=== PATIENT | female | born 1985 | race Caucasian/White ===

== ENCOUNTER → 2016-12-14 | Outpatient (CLI) | payer BC ==
--- NOTE | 2016-12-14 18:45 | US ---
EXAMINATION TYPE: US OB <= 14 wk fetus DATE OF EXAM: 12/14/2016 6:04 PM COMPARISON: NONE CLINICAL HISTORY: Z36 Confirm Dates. EXAM PERFORMED: OBTA EXAM MEASUREMENTS: GESTATIONAL AGE / DATING Physician Established: (9 weeks/6 days) EDC: 07/13/2017 Dates by LMP: (9 weeks/6 days) EDC: 07/13/2017 Dates by First Scan: PROCESS TECHNICIAN Dates by Current Scan for: (10 weeks/0 days) EDC: 07/12/2017 MATERNAL ANATOMY Uterus: 11.5 x 8.9 x 8.0cm Right Ovary: 2.7 x 1.9 x 1.7cm Left Ovary: 2.0 x 1.9 x 1.9cm Post CDS / Adnexa: wnl Presence of free fluid: no Presence of corpus luteal cyst: not seen Presence of subchorionic bleed: no GESTATION / SURVEY CRL: 3.1cm (10 weeks/0 days) MSD: wnl Yolk Sac (normal less than 6mm): 0.4 Heart Rate: 179 bpm Rhythm: Normal IUP: Viable IUP Date of LMP: 10/06/2016 Beta HcG (if available): not available TECHNOLOGIST IMPRESSION: Viable 10w0d IUP seen Ultrasound gestational age is 10 weeks. I see no complicating process. IMPRESSION:
== END | disposition home or self-care (01) ==
LOC: RADUSMAIN 17:46
PROVIDERS: ATTEND Obstetrics & Gynecology
DX: Z36 Encounter for antenatal screening of mother (principal); Z3A.10 10 weeks gestation of pregnancy
CPT/HCPCS: 76801

== ENCOUNTER → 2016-12-15 | Outpatient (CLI) | payer BC ==
[2016-12-15 10:04] LABS: CH 29.9; HCT 38.8 % (34.0-46.0); HDW 2.37; HGB 13.3 gm/dL (11.4-16.0); MCH 30.3 pg (25.0-35.0); MCHC 34.3 g/dL (31.0-37.0); MCV 88.4 fL (80.0-100.0); Mean Platelet Volume 8.1; RBC 4.39 m/uL (3.80-5.40); RDW 12.6 % (11.5-15.5); WBC 7.6 k/uL (3.8-10.6)
[2016-12-15 10:06] LABS: Glucose 85 mg/dL (74-99); Non-African American GFR(MDRD) >60 (>60 ml/min/1.73 sqM)
[2016-12-15 10:34] LABS: Hepatitis B Surface Ag Index 0.06
[2016-12-17 03:55] LABS: HIV-1/HIV-2 Ab Screen NONREAC (NON REAC)
[2016-12-18 06:56] LABS: Toxoplasma Antibody (IgG) <3.0 IU/mL (<7.2)
== END ==
LOC: LABWHC1 09:32
PROVIDERS: ATTEND Obstetrics & Gynecology
DX: Z34.01 Encounter for supervision of normal first pregnancy, first trimester (principal); R53.83 Other fatigue
CPT/HCPCS: 36415; 82565; 82947; 85027; 86762; 86777; 86778; 86780; 86850; 86900; 86901; 87340; 87389

== ENCOUNTER → 2017-02-02 | Outpatient (CLI) | payer BC ==
[2017-02-04 09:10] LABS: Alpha Fetoprotein 20.3 ng/mL; Alpha Fetoprotein (M.O.M) 0.65 (Negative); Gestational Age (days) 0; Human Chorionic Gonadotropin 35.2 IU/mL; Interpretation SeeBelow; Maternal Age at EDD (Yrs) 29
== END | disposition home or self-care (01) ==
LOC: LABWHC1 12:38
PROVIDERS: ATTEND Obstetrics & Gynecology
DX: Z34.02 Encounter for supervision of normal first pregnancy, second trimester (principal); Z3A.00 Weeks of gestation of pregnancy not specified
CPT/HCPCS: 36415; 82105; 82677; 84702; 86336

== ENCOUNTER → 2017-04-05 | Outpatient (CLI) | payer BC ==
[2017-04-05 11:31] LABS: CH 30.8; CHCM 34.6; HCT 35.3 % (34.0-46.0); HDW 2.46; HGB 12.4 gm/dL (11.4-16.0); MCH 31.6 pg (25.0-35.0); MCHC 35.3 g/dL (31.0-37.0); MCV 89.5 fL (80.0-100.0); RBC 3.94 m/uL (3.80-5.40); RDW 13.1 % (11.5-15.5); WBC 8.9 k/uL (3.8-10.6)
== END | disposition home or self-care (01) ==
LOC: LABWHC1 10:08
PROVIDERS: ATTEND Obstetrics & Gynecology
DX: Z34.02 Encounter for supervision of normal first pregnancy, second trimester (principal); Z3A.00 Weeks of gestation of pregnancy not specified
CPT/HCPCS: 36415; 82950; 85027

== ENCOUNTER → 2017-06-14 | Outpatient (CLI) | payer BC ==
--- NOTE | 2017-06-14 12:14 | US ---
EXAMINATION TYPE: US OB anatomy transabd third trimester DATE OF EXAM: 06/14/2017 COMPARISON: 12/14/2016 first trimester ultrasound HISTORY: O36.63X0 Large for Dates TECHNIQUE: Transabdominal (TA) EXAM MEASUREMENTS: GESTATIONAL AGE / DATING Physician Established: (35 weeks/6 days) EDC: 07/13/2017 Dates by LMP: (35 weeks/6 days) EDC: 07/13/2017 Dates by First Scan: (36 weeks/0 days) EDC: 07/12/2017 Dates by Current Scan for: (35 weeks/1 days) EDC: SURVEY IUP: Single PLACENTA: Anterior PREVIA: No previa JEMIMA: 10.8 cm Normal CERVICAL LENGTH (transabdominal: norm > 3.0cm): 3.3 cm BIOMETRY PRESENTATION: Vertex LIE: Oblique BPD: 9.1 cm 37 weeks / 0 days HC: 31.6 cm 35 weeks / 3 days AC: 31.1 cm 35 weeks / 1 days FL: 6.8 cm 35 weeks / 0 days ESTIMATED WEIGHT IN GRAMS: 2642 grams ESTIMATED WEIGHT IN LBS/OZS: 5 lbs. 13 oz. WEIGHT PERCENTAGE BASED ON ESTABLISHED DATE: 35 % HC/AC: 1.0 Normal FL/AC: 22.0 Normal HEART RATE: 147 bpm RHYTHM: Normal ANATOMY SEEN (within normal limits): Cavus Septi Pellucidi Four Chamber Heart Outflow tracts: LVOT/RVOT Stomach Situs Diaphragm Kidneys (bilateral) Bladder Three Vessel Cord Longitudinal Spine Transverse Spine ANATOMY NOT SEEN: * Choroid Plexus (bilateral)- positon, low in pelvis *Lateral Vent (< 1 cm) - positon, low in pelvis * Cisterna Magna (< 1.1 cm) positon, low in pelvis * Nuchal Fold (< 0.6 cm) - positon, low in pelvis * Cerebellum (varies with age) - positon, low in pelvis Midline Falx - positon, low in pelvis Nose / Lips- positon, low in pelvis Cord Insert-crowding Arms (bilateral)-crowding Legs (bilateral)-crowding Single live intrauterine gestation is redemonstrated. Normal cephalad presentation to fetus is seen c urrently. Amniotic fluid index is calculated within normal limits. There is no ultrasound evidence fo r placenta previa. biometry measurements are congruent and within normal limits. Detailed anato mical survey is suboptimal as detailed above due to advanced gestational age. IMPRESSION: As above
== END | disposition home or self-care (01) ==
LOC: RADUSWWP 08:59
PROVIDERS: ATTEND Obstetrics & Gynecology
DX: O36.63X0 Maternal care for excessive fetal growth, third trimester, not applicable or unspecified (principal); Z3A.35 35 weeks gestation of pregnancy
CPT/HCPCS: 76811

== ENCOUNTER → 2017-09-24 | Outpatient (CLI) | payer BC, OTHER ==
--- NOTE | 2017-09-24 19:05 | XR ---
EXAMINATION TYPE: XR chest 2V DATE OF EXAM: 09/24/2017 COMPARISON: NONE HISTORY: Lower extremity edema 2 weeks TECHNIQUE: Frontal and lateral views of the chest are obtained. FINDINGS: There is no focal air space opacity, pleural effusion, or pneumothorax seen. The cardiac silhouette size is within normal limits. The osseous structures are intact. IMPRESSION: No acute cardiopulmonary process.
== END | disposition home or self-care (01) ==
LOC: RADXRMAIN 18:00
PROVIDERS: ATTEND Family Medicine
DX: R60.0 Localized edema (principal)
CPT/HCPCS: 71020

== ENCOUNTER → 2019-03-23 | Outpatient (CLI) | payer BC ==
[2019-03-23 18:13] LABS: Basophils % (A) 0 %; Eosinophils # (A) 0.1 k/uL (0-0.7); Eosinophils % (A) 1 %; HCT 38.2 % (34.0-46.0); HGB 12.5 gm/dL (11.4-16.0); Lymphocytes # (A) 1.9 k/uL (1.0-4.8); Lymphocytes % (A) 24 %; MCH 27.8 pg (25.0-35.0); MCHC 32.8 g/dL (31.0-37.0); MCV 84.7 fL (80.0-100.0); Mean Platelet Volume 7.5; Monocytes # (A) 0.4 k/uL (0-1.0); Monocytes % (A) 5 %; Neutrophils # (A) 5.4 k/uL (1.3-7.7); Neutrophils % (A) 68 %; Platelet Count 226 k/uL (150-450); RBC 4.51 m/uL (3.80-5.40); RDW 13.7 % (11.5-15.5); WBC 7.9 k/uL (3.8-10.6)
[2019-03-24 00:06] LABS: Folate, Serum 16.7 ng/mL; Vitamin D 25 Hydroxy 12.8 ng/mL (30.0-100.0)
[2019-03-24 00:34] LABS: African American GFR (CKD) 133.8 (60.0-200.0); Albumin 4.1 g/dL (3.80-4.90); Albumin/Globulin Ratio 1.64 (1.60-3.17); Anion Gap 9.9 mmol/L (4.00-12.00); BUN/Creat Ratio 14.29 Ratio (12.00-20.00); Calcium 8.9 mg/dL (8.7-10.3); Carbon Dioxide 25.1 mmol/L (21.6-31.8); Globulin 2.5 g/dL (1.6-3.3); LDL Cholesterol,Calculated 87.4 mg/dL (0.0-131.0); Potassium 3.9 mmol/L (3.5-5.5); Total Bilirubin 0.5 mg/dL (0.3-1.2); Total Protein 6.6 g/dL (6.2-8.2); VLDL Calculation 15.6 mg/dL (5.00-40.00)
== END | disposition home or self-care (01) ==
LOC: LABWHC1 16:24
PROVIDERS: ATTEND Family Medicine
DX: R53.83 Other fatigue (principal); R63.5 Abnormal weight gain
CPT/HCPCS: 36415; 80053; 80061; 82306; 82607; 82746; 83036; 84439; 84443; 85025

== ENCOUNTER → 2020-12-16 | Outpatient (CLI) | payer BC | END | disposition home or self-care (01) | LOC: LABWHC1 15:37 | PROVIDERS: ATTEND Internal Medicine Clinical Cardiac Electrophysiology | DX: R00.0 Tachycardia, unspecified (principal) | CPT/HCPCS: 36415; 83835; 84443 ==

== ENCOUNTER 2020-12-30 14:39 | Day surgery (SDC) | payer BC ==
[~2020-12-30 14:39] MED LIST: SODIUM CHLORIDE 0.9% 1,000 ML IV SCH
[2020-12-30] MEDS ORDERED: SODIUM CHLORIDE 0.9% 500 ML 500 ML IV ONE (14:46)
[2020-12-30 14:57] VITALS: RESP 16; TEMP 97.8
[2020-12-30 16:03] VITALS: BP 155/88; PULSE 67
--- NOTE | 2020-12-31 14:45 | P.EPPROC ---
- EP Procedure Note Electrophysiology Procedure Note: Diagnosis Recurrent presyncope Twelve-lead EKG Sinus rhythm normal NH narrow QRS normal ST segments normal QT interval No epsilon waves, no delta waves, normal ST segments, normal QT interval Tilt table test per protocol Baseline blood pressure 129/80 mmHg him a Baseline heart rate 73 beats a minute Patient was tilted upright at night of 70 per protocol. Immediately upon assuming upright position she reported dizziness and at that time her blood pressure was 144/87 mmHg pulse rate 78 beats a minute. With ClearSite, no change in blood pressure could be detected Heart rates remained in the 80s and low 90s sinus rhythm Blood pressure remained stable At the end of the procedure she was laid supine once again Impression Normal 12-lead EKG Normal heart rate and blood pressure response to upright tilting Postural dizziness without any heart rate and blood pressure changes, immedi ately upon assuming upright position
== END 2020-12-30 16:00 | disposition home or self-care (01) ==
LOC: CATHEP 14:39
PROVIDERS: ATTEND Internal Medicine Clinical Cardiac Electrophysiology
DX: R55 Syncope and collapse (principal); R00.2 Palpitations; R00.0 Tachycardia, unspecified; I47.1 Supraventricular tachycardia; R03.0 Elevated blood-pressure reading, without diagnosis of hypertension; Z82.49 Family history of ischemic heart disease and other diseases of the circulatory system; Z79.84 Long term (current) use of oral hypoglycemic drugs; Z79.899 Other long term (current) drug therapy; Z88.1 Allergy status to other antibiotic agents; Z88.0 Allergy status to penicillin; Z88.8 Allergy status to other drugs, medicaments and biological substances
CPT/HCPCS: 81025; 93660

== ENCOUNTER → 2022-11-03 | Outpatient (CLI) | payer BC ==
[2022-11-03 17:08] LABS: Basophils # (A) 0.04 X 10*3/uL (0.00-0.10); Basophils % (A) 0.7 %; Eosinophils # (A) 0.14 X 10*3/uL (0.04-0.35); Eosinophils % (A) 2.3 %; HGB 12.7 g/dL (12.0-15.0); Immature Grans, Automated 0.5 %; Lymphocytes # (A) 1.83 X 10*3/uL (0.90-5.00); Lymphocytes % (A) 30.7 %; MCH 27.7 pg (27.0-32.0); MCHC 31.8 g/dL (32.0-37.0); MCV 87.1 fL (80.0-97.0); Mean Platelet Volume 10.2 fL (9.5-12.2); Monocytes # (A) 0.65 X 10*3/uL (0.20-1.00); Monocytes % (A) 10.9 %; NRBC Per 100 WBC 0 /100 WBCS (0.0-0.0); Neutrophils # (A) 3.28 X 10*3/uL (1.80-7.70); Neutrophils % (A) 54.9 %; Platelet Count 260 X 10*3/uL (140-440); RBC 4.59 X 10*6/uL (4.10-5.20); RDW 12.6 % (11.5-14.5); WBC 5.97 X 10*3/uL (4.50-10.00)
[2022-11-03 18:01] LABS: ALT 10 U/L (8-44); AST 13 U/L (13-35); African American GFR (CKD) 130.1 (60.0-200.0); Albumin 4.5 g/dL (3.8-4.9); Albumin/Globulin Ratio 1.88 (1.60-3.17); Alkaline Phosphatase 80 U/L (41-126); BUN/Creat Ratio 23.86 Ratio (12.00-20.00); Blood Urea Nitrogen 16.7 mg/dL (9.0-27.0); Calcium 9.3 mg/dL (8.7-10.3); Carbon Dioxide 25.7 mmol/L (20.0-27.5); Chloride 104 mmol/L (96-109); Globulin 2.4 g/dL (1.6-3.3); Glucose 92 mg/dL (70-110); Magnesium 2.1 mg/dL (1.5-2.4); Non-African American GFR(CKD) 112.3 (60.0-200.0); Potassium 4.3 mmol/L (3.5-5.5); Sodium 142 mmol/L (135-145); Total Protein 6.9 g/dL (6.2-8.2)
== END | disposition home or self-care (01) ==
LOC: LABWHC1 09:59 → EDSTATUS 11:48
PROVIDERS: ATTEND Internal Medicine Interventional Cardiology
DX: R55 Syncope and collapse (principal); R00.2 Palpitations
CPT/HCPCS: 36415; 80053; 83735; 84443; 85025

== ENCOUNTER → 2024-05-23 | Outpatient (CLI) | payer BC | END | disposition home or self-care (01) | LOC: LABWHC1 11:45 | DX: R53.83 Other fatigue (principal) | CPT/HCPCS: 36415; 80053; 82533; 82607; 84146; 84439; 84443; 84480; 85027; 86376 ==

== ENCOUNTER → 2024-07-15 | Outpatient (CLI) | payer BC ==
--- NOTE | 2024-07-16 02:38 | EEG ---
ELECTROENCEPHALOGRAM REPORT CLINICAL HISTORY: This is a 38-year-old woman with reported recurrent headaches. The video EEG is obtained to evaluate for seizure epileptiform activity. Start of recording is 8:21 on 07/15/2024 and end of recording is 9:39 on 07/15/2024. RELEVANT MEDICATIONS: The patient is not on any antiseizure medication that is reported on the sterile preparation technician report. EEG TYPE: This is a prolonged EEG using the 10/20 electrode placement system. DESCRIPTION: Wakefulness is obtained. During awake state, the posterior-dominant rhythm consists of 11 to 11.5 hertz activity that is well modulated, well sustained. There is no physiological stage 2 sleep architecture. There is no focal slowing. There is mild to moderate myogenic artifact over the left hemisphere and left temporal region. Interictal and ictal, there appears left frontal spikes > central = temporal. No seizure is noted during the study. ACTIVATION PROCEDURE: Photic stimulation did not evoke a posterior driving response. There is no abnormality during the photic stimulation. Hyperventilation is not performed. CLINICAL INTERPRETATION: This is an abnormal routine EEG. The background is normal. There seems to be suspicious spikes over the left frontal region predominately which can cause cortical irritability and appears possible epileptiforgenic. No seizures noted during the study. There is no focal slowing. Clinical correlation is recommended. Recommendation: To be evaluated by neurologist as outpatient and consider a sleep deprived eeg or ambulatory EEG for few days or even epilepsy monitoring unit (EMU). MMAUBREE / HATTIEN: [id number] / MTDD
== END | disposition home or self-care (01) ==
LOC: NEUROMAIN 08:08
PROVIDERS: ATTEND Psychiatry & Neurology Neurology
DX: G43.E09 Chronic migraine with aura, not intractable, without status migrainosus (principal); R43.1 Parosmia; Z88.0 Allergy status to penicillin; Z88.1 Allergy status to other antibiotic agents; Z88.8 Allergy status to other drugs, medicaments and biological substances; Z88.5 Allergy status to narcotic agent
CPT/HCPCS: 95812

== ENCOUNTER → 2024-07-25 | Outpatient (CLI) | payer BC ==
--- NOTE | 2024-07-28 18:26 | MR ---
INDICATION: Patient age:Female; 38 years old; Reason for study: R43.1 PAROSMIA G43.E09 CHRONIC HEADACHE; PHH. COMPARISON: None. TECHNIQUE: Multi planar, multi sequence imaging was performed through the brain. The patient was then given 11 cc of Gadavist intravenously and multi planar, T1 fat-saturation images were obtained. FINDINGS: The hernandez-white junctions, ventricular system, basal cisterns appear unremarkable. Age-appropriate cer ebral volume. Diffusion-weighted imaging shows no evidence of restricted diffusion to suggest acute/s ubacute infarct. Intracranial arterial flow voids are maintained. Midline structures show no abnormal ity. No FLAIR signal abnormalities. The susceptibility weighted images do not reveal any evidence for micro-hemorrhage. After administration of gadolinium, no abnormal enhancement is seen. The bone marrow signal is within normal limits. The globes are unremarkable. T2 hyperintense 1.4 cm mucous retention cyst within the right maxillary sinus. Remaining paranasal sinuses appear clear. IMPRESSION: No evidence of intracranial mass, acute/subacute infarct, or abnormal enhancement. [facility], , 07/28/2024 6:24 PM
== END | disposition home or self-care (01) ==
LOC: RADMRIMAIN 11:06
PROVIDERS: ATTEND Psychiatry & Neurology Neurology
DX: G43.E09 Chronic migraine with aura, not intractable, without status migrainosus (principal); R43.1 Parosmia
CPT/HCPCS: 70553